=== PATIENT | female | born 1965 | race Caucasian/White ===

== ENCOUNTER 2023-03-24 07:31 | Inpatient (IN) | payer MEDICARE, MEDICAID ==
[~2023-03-24] VITALS: Ht 162.6 cm; Wt 61.4 kg
[2023-03-24] VITALS (10 sets, daily range): BP systolic 113–138; BP diastolic 68–83; PULSE 80–117; RESP 14–20; TEMP 97.7–98.1; O2SAT 89–98
--- NOTE | 2023-03-24 07:58 | NUR ---
pt presents w/SOB and possible broken rib on L side. MD at bedside.
[2023-03-24] MEDS ORDERED: morphine 4 MG/ML inj SYRINge IV ONE (08:10)
[2023-03-24] MEDS ORDERED: ipratropium/albuterol 3ml nebule IH PRN (08:20)
[2023-03-24] MEDS ORDERED: albuterol 2.5 MG/3 ML nebule CONTNEB ONE (08:20)
[2023-03-24] MEDS ORDERED: ipratropium 0.5 MG/2.5ML nebule IH ONE (08:20)
[2023-03-24] MEDS ORDERED: methylPREDNISolone sod succ 125mg/2ml vial IV ONE (08:25)
[2023-03-24 08:30] LABS: BASOPHILS # (AUTO) 0.2 X10'3 (0-0.2); BASOPHILS % (AUTO) 0.8 % (0-1); EOSINOPHILS # (AUTO) 0.2 X10'3 (0-0.9); EOSINOPHILS % (AUTO) 1.2 % (0-6); HEMATOCRIT 46.1 % (35.0-45.0); HEMOGLOBIN 15.5 g/dl (12.0-16.0); LYMPHOCYTES # (AUTO) 3.4 X10'3 (1.1-4.8); MEAN CORPUSCULAR HEMOGLOBIN 32.8 PG (27.0-31.0); MEAN CORPUSCULAR HGB CONC 33.5 g/dL (33.0-36.5); MEAN CORPUSCULAR VOLUME 97.9 FL (78-98); MEAN PLATELET VOLUME 10.3 FL (7.4-10.4); MONOCYTES # (AUTO) 1.6 X10'3 (0-0.9); MONOCYTES % (AUTO) 8.4 % (2-12); NEUTROPHILS # (AUTO) 13.5 X10'3 (1.8-7.7); NEUTROPHILS % (AUTO) 71.6 % (42-75); PLATELET COUNT 341 X10'3 (140-440); RED BLOOD COUNT 4.71 X10'6 (4.20-5.60); RED CELL DISTRIBUTION WIDTH 13.8 % (11.5-14.5); WHITE BLOOD COUNT 18.9 X10'3 (4.5-11.0)
[2023-03-24 08:44] LABS: ALANINE AMINOTRANSFERASE 13 U/L (12-78); ALBUMIN 3.8 G/DL (3.4-5.0); ALBUMIN/GLOBULIN RATIO 0.9 (1.1-1.5); ALKALINE PHOSPHATASE 87 IU/L (46-116); ANION GAP 11 (8-16); ASPARTATE AMINO TRANSFERASE 15 U/L (10-37); BILIRUBIN,TOTAL 0.5 MG/DL (0.1-1.0); BLOOD UREA NITROGEN 8 MG/DL (7-18); BUN/CREATININE RATIO 12.7 (10.0-20.0); CALCIUM 9.4 MG/DL (8.5-10.1); CHLORIDE 104 MMOL/L (99-107); CREATININE 0.63 MG/DL (0.40-0.90); GLUCOSE 143 MG/DL (70-104); POTASSIUM 3.7 MMOL/L (3.5-5.1); SODIUM 138 MMOL/L (135-145); TOTAL CARBON DIOXIDE 22.9 MMOL/L (24-32); eCRCL 84 ML/MIN; eGFR > 90 ML/MIN
[2023-03-24 08:51] LABS: PRO BRAIN NATRIURETIC PEPTIDE 38 PG/ML (0-125)
--- NOTE | 2023-03-24 10:09 | NUR ---
PT OFF FLOOR TO CT
--- NOTE | 2023-03-24 12:22 | NUR ---
Olga padilla in EDM - 03/24/23 at 1225 by AMORKSEllie Pt doing trial off bi-pap per MD order. Currently at 90%
[2023-03-24] MEDS ORDERED: potassium Cl 20 mEq SR tablet PO PRN (13:15)
[2023-03-24] MEDS ORDERED: potassium Cl 40MEQ/1/2NS 520ml 520 ML IV PRN (13:15)
[2023-03-24] MEDS ORDERED: magnesium Cl slow-release 64mg tablet PO PRN (13:15)
[2023-03-24] MEDS ORDERED: magnesium 4gm in 100ml NS 100 ML IV PRN (13:15)
[2023-03-24] MEDS ORDERED: ondansetron/PF 4mg/2ml inj IV PRN (13:15)
[2023-03-24] MEDS ORDERED: acetaminophen 325mg tablet PO PRN ×2 (13:15)
[2023-03-24] MEDS ORDERED: magnesium 2GM in 50ml NS 50 ML IV PRN (13:15)
[2023-03-24] MEDS ORDERED: morphine 2 MG/ML inj. syringe IV PRN ×2 (13:15)
--- NOTE | 2023-03-24 13:26 | NUR ---
Pt ambulated to bathroom, 1 assist, tolerated fair.
--- NOTE | 2023-03-24 14:42 | NUR ---
Patient in room ED 2. I have received report from RENATE RESENDIZ, and had the opportunity to ask questions and assume patient care.
[2023-03-24] MEDS: HYDROcodone/acetaminophen 5mg/325mg tablet PO PRN (16:46)
[2023-03-24] MEDS ORDERED: FLU VACC QS2023-24(6MOS UP)/PF 60 MCG/0.5 ML SYRINGE IM ONE (16:50)
[2023-03-24] MEDS ORDERED: pneumococcal 23-VAL P-sac vacc 25 mcg/0.5ml vial IMVAC ONE (16:50)
--- NOTE | 2023-03-24 18:10 | NUR ---
Problems reprioritized. Patient report given, questions answered & plan of care reviewed with RENATE CHOWDARY.
[2023-03-24] MEDS: ipratropium/albuterol 3ml nebule NEB SCH ×2 (19:33→23:38)
[2023-03-24] MEDS: methylPREDNISolone sod succ/PF 40mg inj. IV SCH (20:36)
[2023-03-24] MEDS: heparin, porcine 5000 units/ml vial SQ SCH (20:39)
[2023-03-24] MEDS ORDERED: IBUP-1984 PO (21:17)
[2023-03-24] MEDS: ibuprofen tablet 400 MG TABLET PO SCH (22:40)
[2023-03-25] VITALS (20 sets, daily range): BP systolic 106–153; BP diastolic 56–78; PULSE 85–114; RESP 16–22; TEMP 97.7–98.6; O2SAT 90–96
[2023-03-25] MEDS: temazepam 15mg capsule PO PRN ×2 (01:20→22:34)
[2023-03-25] MEDS: HYDROcodone/acetaminophen 10/325mg tab PO PRN ×3 (01:21→14:08)
[2023-03-25] MEDS ORDERED: ALBU18HF2 IH (01:53)
[2023-03-25] MEDS ORDERED: VARE1TAB24 PO (01:53)
[2023-03-25] MEDS ORDERED: FLUT1AER INH (01:53)
[2023-03-25] MEDS: ipratropium/albuterol 3ml nebule NEB SCH ×6 (02:39→23:40)
--- NOTE | 2023-03-25 06:25 | NUR ---
Problems reprioritized. Patient report given, questions answered & plan of care reviewed with Liza
[2023-03-25 06:38] LABS: BASOPHILS % (AUTO) 0.2 % (0-1); EOSINOPHILS % (AUTO) 0 % (0-6); HEMATOCRIT 41.1 % (35.0-45.0); HEMOGLOBIN 13.9 g/dl (12.0-16.0); LYMPHOCYTES # (AUTO) 1.2 X10'3 (1.1-4.8); LYMPHOCYTES % (AUTO) 5.6 % (21-51); MEAN CORPUSCULAR HEMOGLOBIN 32.9 PG (27.0-31.0); MEAN CORPUSCULAR HGB CONC 33.8 g/dL (33.0-36.5); MEAN CORPUSCULAR VOLUME 97.4 FL (78-98); MEAN PLATELET VOLUME 10.8 FL (7.4-10.4); MONOCYTES # (AUTO) 1.1 X10'3 (0-0.9); NEUTROPHILS # (AUTO) 19.2 X10'3 (1.8-7.7); NEUTROPHILS % (AUTO) 89.2 % (42-75); PLATELET COUNT 308 X10'3 (140-440); RED BLOOD COUNT 4.22 X10'6 (4.20-5.60); WHITE BLOOD COUNT 21.5 X10'3 (4.5-11.0)
--- NOTE | 2023-03-25 06:55 | NUR ---
Patient in room PCU 3012. I have received report from RENATE CHOWDARY, and had the opportunity to ask questions and assume patient care.
[2023-03-25 06:56] LABS: ALANINE AMINOTRANSFERASE 13 U/L (12-78); ALBUMIN 3.4 G/DL (3.4-5.0); ALBUMIN/GLOBULIN RATIO 0.9 (1.1-1.5); ALKALINE PHOSPHATASE 73 IU/L (46-116); ANION GAP 12 (8-16); ASPARTATE AMINO TRANSFERASE 10 U/L (10-37); BILIRUBIN,TOTAL 0.3 MG/DL (0.1-1.0); BLOOD UREA NITROGEN 13 MG/DL (7-18); BUN/CREATININE RATIO 17.8 (10.0-20.0); CALCIUM 9.6 MG/DL (8.5-10.1); CHLORIDE 102 MMOL/L (99-107); CREATININE 0.73 MG/DL (0.40-0.90); GLUCOSE 136 MG/DL (70-104); POTASSIUM 3.2 MMOL/L (3.5-5.1); SODIUM 137 MMOL/L (135-145); TOTAL CARBON DIOXIDE 23.3 MMOL/L (24-32); TOTAL PROTEIN 7.2 G/DL (6.4-8.2); eCRCL 73 ML/MIN; eGFR 82 ML/MIN
[2023-03-25] MEDS: potassium Cl 20 mEq SR tablet PO PRN ×3 (07:28→16:55)
[2023-03-25] MEDS: ibuprofen tablet 400 MG TABLET PO SCH ×3 (07:29→20:23)
[2023-03-25] MEDS: methylPREDNISolone sod succ/PF 40mg inj. IV SCH ×2 (07:31→20:25)
[2023-03-25] MEDS: heparin, porcine 5000 units/ml vial SQ SCH ×2 (07:35→20:26)
[2023-03-25] MEDS: CefTRIAXone 2gm/D5W 50ml BAG 50 ML IV SCH (11:32)
--- NOTE | 2023-03-25 17:05 | NUR ---
PT AMBULATED 300 FEET WITH THIS NURSE, TOLERATED WELL BY PT.
--- NOTE | 2023-03-25 18:24 | NUR ---
Problems reprioritized. Patient report given, questions answered & plan of care reviewed with RENATE CHOWDARY.
[2023-03-25 20:00] LABS: BILIRUBIN,URINE NEGATIVE (Neg); CLARITY,URINE CLEAR (Clear); COLOR,URINE YELLOW (Yellow); GLUCOSE, URINE NEGATIVE (Neg); KETONES,URINE NEGATIVE (Neg); LEUKOCYTE ESTERASE ,URINE NEGATIVE (Neg); NITRITES, URINE NEGATIVE (Neg); OCCULT BLOOD,URINE MODERATE (Neg); PROTEIN,URINE NEGATIVE (Neg); UROBILINOGEN,URINE 0.2 E.U/dL (0.2-1.0)
[2023-03-25 20:30] LABS: UA COLLECTION TYPE STRAIGHT CATH
[2023-03-25 20:41] LABS: BACTERIA,URINE FEW /HPF (Neg); SQUAMOUS EPITHELIAL CELL,UR FEW /LPF (FEW); WBC,URINE 0-4 /HPF (0-4)
[2023-03-25] MEDS: HYDROcodone/acetaminophen 5mg/325mg tablet PO PRN (22:35)
[2023-03-26] VITALS (16 sets, daily range): BP systolic 98–137; BP diastolic 53–96; PULSE 71–104; RESP 16–21; TEMP 97.5–98.8; O2SAT 89–97
[2023-03-26] MEDS: ipratropium/albuterol 3ml nebule NEB SCH ×6 (03:54→23:56)
--- NOTE | 2023-03-26 06:14 | NUR ---
Problems reprioritized. Patient report given, questions answered & plan of care reviewed with Pretty
--- NOTE | 2023-03-26 06:23 | NUR ---
Patient in room PCU 3012. I have received report from Sarah and had the opportunity to ask questions and assume patient care.
[2023-03-26] MEDS: heparin, porcine 5000 units/ml vial SQ SCH ×2 (08:27→21:35)
[2023-03-26] MEDS: ibuprofen tablet 400 MG TABLET PO SCH ×3 (08:28→21:34)
[2023-03-26] MEDS: methylPREDNISolone sod succ/PF 40mg inj. IV SCH ×2 (08:38→19:33)
[2023-03-26] MEDS: CefTRIAXone 2gm/D5W 50ml BAG 50 ML IV SCH (08:42)
[2023-03-26] MEDS: HYDROcodone/acetaminophen 10/325mg tab PO PRN ×2 (08:58→15:46)
--- NOTE | 2023-03-26 09:57 | NUR ---
O2 Sat at rest on room air:_86_% If below 89%: Recovery O2 Sat at rest on _4LPM:_86%:__91_% via____NASAL CANNULA__(mask/nasal cannula, etc..) No further documentation is necessary. If O2 Sat did not drop below 89% on room air,ambulate patient on room air. O2 Sat while ambulating on room air:___% Recovery O2 Sat while ambulating on ___LPM:___% No further documentation is necessary. If patient does not drop below 89% while ambulating, he/she does not qualify for home O2.
[2023-03-26 10:33] LABS: BASOPHILS % (AUTO) 0.2 % (0-1); D-DIMER 0.33 MG/L FEU (0-0.50); EOSINOPHILS % (AUTO) 0 % (0-6); HEMOGLOBIN 13.2 g/dl (12.0-16.0); LYMPHOCYTES % (AUTO) 7.4 % (21-51); MEAN CORPUSCULAR HEMOGLOBIN 32.5 PG (27.0-31.0); MEAN CORPUSCULAR VOLUME 98.5 FL (78-98); MONOCYTES # (AUTO) 1.1 X10'3 (0-0.9); NEUTROPHILS # (AUTO) 24.5 X10'3 (1.8-7.7); NEUTROPHILS % (AUTO) 88.4 % (42-75); PLATELET COUNT 306 X10'3 (140-440); RED BLOOD COUNT 4.06 X10'6 (4.20-5.60); RED CELL DISTRIBUTION WIDTH 13.9 % (11.5-14.5)
[2023-03-26 10:42] LABS: WHITE BLOOD COUNT 27.7 X10'3 (4.5-11.0)
--- NOTE | 2023-03-26 10:52 | NUR ---
T/C to Balta notifying him that patient has a critical lab value of WBC 27.7H. He said he will check it again.
[2023-03-26 10:57] LABS: ALANINE AMINOTRANSFERASE 13 U/L (12-78); ALBUMIN 3.3 G/DL (3.4-5.0); ALKALINE PHOSPHATASE 67 IU/L (46-116); ANION GAP 10 (8-16); ASPARTATE AMINO TRANSFERASE 11 U/L (10-37); BILIRUBIN,TOTAL 0.3 MG/DL (0.1-1.0); BLOOD UREA NITROGEN 22 MG/DL (7-18); BUN/CREATININE RATIO 31.9 (10.0-20.0); CALCIUM 9.3 MG/DL (8.5-10.1); CHLORIDE 103 MMOL/L (99-107); CREATININE 0.69 MG/DL (0.40-0.90); GLUCOSE 148 MG/DL (70-104); POTASSIUM 3.9 MMOL/L (3.5-5.1); SODIUM 137 MMOL/L (135-145); TOTAL CARBON DIOXIDE 23.9 MMOL/L (24-32); TOTAL PROTEIN 6.7 G/DL (6.4-8.2); eCRCL 77 ML/MIN; eGFR 87 ML/MIN
[2023-03-26 11:19] LABS: BURR CELLS 1+; PLATELET ESTIMATE NORMAL; TOTAL CELLS COUNTED 100
[2023-03-26 11:20] LABS: LARGE PLATELETS FEW
[2023-03-26 11:31] LABS: HEMOGLOBIN A1C 5.5 % (4.5-6.2)
[2023-03-26] MEDS: levoFLOXACIN-Levaquin 500mg/D5 100 ML IV SCH (11:59)
--- NOTE | 2023-03-26 18:23 | NUR ---
Problems reprioritized. Patient report given, questions answered & plan of care reviewed with Mel. Addendum: 03/26/23 at 1834 by Pretty Canseco LVN, LVN Problems reprioritized. Patient report given, questions answered & plan of care reviewed with
[2023-03-26] MEDS: HYDROcodone/acetaminophen 5mg/325mg tablet PO PRN (21:34)
[2023-03-26] MEDS: temazepam 15mg capsule PO PRN (21:34)
[2023-03-27] VITALS (21 sets, daily range): BP systolic 125–136; BP diastolic 64–84; PULSE 77–120; RESP 16–30; TEMP 96.7–98.2; O2SAT 88–100
--- NOTE | 2023-03-27 00:29 | NUR ---
SOLE ASSESSOR documentation: I have reviewed and agree with assessment documented by COREY PICHARDO, UNLESS OTHERWISE CHARTED.
[2023-03-27] MEDS: ipratropium/albuterol 3ml nebule NEB SCH ×6 (02:58→23:53)
[2023-03-27] MEDS: HYDROcodone/acetaminophen 10/325mg tab PO PRN ×3 (05:59→20:06)
--- NOTE | 2023-03-27 06:30 | NUR ---
Patient in room PCU 3012. I have received report from KYLEE and had the opportunity to ask questions and assume patient care.
[2023-03-27] MEDS: methylPREDNISolone sod succ/PF 40mg inj. IV SCH ×2 (07:26→21:31)
[2023-03-27 07:27] LABS: BASOPHILS # (AUTO) 0.1 X10'3 (0-0.2); BASOPHILS % (AUTO) 0.2 % (0-1); EOSINOPHILS % (AUTO) 0 % (0-6); HEMATOCRIT 40.9 % (35.0-45.0); HEMOGLOBIN 13.5 g/dl (12.0-16.0); LYMPHOCYTES # (AUTO) 2.2 X10'3 (1.1-4.8); LYMPHOCYTES % (AUTO) 9.2 % (21-51); MEAN CORPUSCULAR HEMOGLOBIN 32.5 PG (27.0-31.0); MEAN CORPUSCULAR HGB CONC 33.1 g/dL (33.0-36.5); MEAN CORPUSCULAR VOLUME 98.2 FL (78-98); MEAN PLATELET VOLUME 10.5 FL (7.4-10.4); MONOCYTES # (AUTO) 1.1 X10'3 (0-0.9); MONOCYTES % (AUTO) 4.6 % (2-12); NEUTROPHILS # (AUTO) 20.6 X10'3 (1.8-7.7); PLATELET COUNT 316 X10'3 (140-440); RED BLOOD COUNT 4.17 X10'6 (4.20-5.60); RED CELL DISTRIBUTION WIDTH 13.7 % (11.5-14.5); WHITE BLOOD COUNT 23.9 X10'3 (4.5-11.0)
[2023-03-27] MEDS: levoFLOXACIN-Levaquin 500mg/D5 100 ML IV SCH (07:27)
[2023-03-27 07:34] LABS: ALANINE AMINOTRANSFERASE 14 U/L (12-78); ALBUMIN 3.4 G/DL (3.4-5.0); ALKALINE PHOSPHATASE 66 IU/L (46-116); ANION GAP 11 (8-16); ASPARTATE AMINO TRANSFERASE 10 U/L (10-37); BILIRUBIN,TOTAL 0.3 MG/DL (0.1-1.0); BLOOD UREA NITROGEN 22 MG/DL (7-18); BUN/CREATININE RATIO 32.4 (10.0-20.0); CALCIUM 9.6 MG/DL (8.5-10.1); CHLORIDE 103 MMOL/L (99-107); CREATININE 0.68 MG/DL (0.40-0.90); GLUCOSE 113 MG/DL (70-104); POTASSIUM 4.1 MMOL/L (3.5-5.1); SODIUM 137 MMOL/L (135-145); TOTAL CARBON DIOXIDE 23.2 MMOL/L (24-32); TOTAL PROTEIN 6.8 G/DL (6.4-8.2); eCRCL 78 ML/MIN; eGFR 89 ML/MIN
[2023-03-27] MEDS: ibuprofen tablet 400 MG TABLET PO SCH ×3 (08:50→21:00)
[2023-03-27] MEDS: heparin, porcine 5000 units/ml vial SQ SCH ×2 (08:52→20:07)
--- NOTE | 2023-03-27 09:30 | NUR ---
PATIENT IV INFILTRATED. STARTED NEW IV 20G RIGHT FOREARM.
[2023-03-27 09:49] LABS: HEP B CORE AB, IGM Negative (Negative); HEPATITIS C VIRUS ANTIBODY Non Reactive (Non Reactive)
--- NOTE | 2023-03-27 10:06 | NUR ---
PATIENT HAS NOT HAD A BM SINCE MAR 23. CALLED DR YEE AND HE ORDERED MIRALAX PO ONE TIME DAILY PRN FOR FIVE DAYS. ORDER ENTERED.
--- NOTE | 2023-03-27 10:08 | NUR ---
Problems reprioritized. Patient report given, questions answered & plan of care reviewed with TIFFANI.
--- NOTE | 2023-03-27 10:08 | NUR ---
Patient in room PCU 3012. I have received report from REY NICOLE and had the opportunity to ask questions and assume patient care. pATIENT IS RESTING IN BED TALKING ON PHONE IN NO ACUTE DISTRESS.
--- NOTE | 2023-03-27 11:00 | NUR ---
DR YEE WAS IN PATIENTS ROOM AND DISCUSSED WITH HER THE ELEVATED WBC COUNT AND THE IMPORTANCE OF HER STAYING IN THE HOSPITAL UNTIL HER IV ANTIBIOTICS WERE COMPLETE. PATIENT ASKED THE DOCTOR IF SHE COULD RETURN HOME TODAY AND HE SAID MAYBE TOMORROW IF HER WBC COUNT CONTINUES TO TREND DOWN. PATIENT WAS DISAPPOINTED BUT AGREED THAT IT MAY BE FOR THE BEST. DR YEE STATED HE DOES NOT WANT HER TO END UP BACK IN THE HOSPITAL.
[2023-03-27] MEDS: polyethylene glycol 3350 17gm powd pack PO PRN (11:53)
--- NOTE | 2023-03-27 13:46 | NUR ---
WALKED 300FT NO ISSUES PT TOLERATED ACTIVITY WELL
[2023-03-27] MEDS ORDERED: HYDR-3972 PO (15:08)
--- NOTE | 2023-03-27 15:50 | NUR ---
Patient in room PCU 3012. I have received report from RENATE Hare and had the opportunity to ask questions and assume patient care.
--- NOTE | 2023-03-27 15:53 | NUR ---
Problems reprioritized. Patient report given, questions answered & plan of care reviewed with IWONA DEWITT. PATIENT RESTIN IN BED IN NO ACUTE DISTRESS.
--- NOTE | 2023-03-27 16:15 | NUR ---
I agree with previous RN's assessment.
--- NOTE | 2023-03-27 18:30 | NUR ---
Problems reprioritized. Patient report given, questions answered & plan of care reviewed with RENATE Walker.
--- NOTE | 2023-03-27 22:01 | NUR ---
Paged PAGER ID: [phone] MESSAGE: Vaishnavi Cardenas I have an Abnormal EKG on patient Feli Lyman in room 3012B that needs to be read she is experiencing chest pain at the moment.
[2023-03-27] MEDS ORDERED: LEVO-65 PO (22:44)
[2023-03-28] VITALS (8 sets, daily range): BP systolic 128–131; BP diastolic 75–89; PULSE 77–109; RESP 17–20; TEMP 96.7; O2SAT 86–97
[2023-03-28] MEDS: temazepam 15mg capsule PO PRN (01:19)
--- NOTE | 2023-03-28 04:05 | NUR ---
alcohol rubber documentation: I have reviewed and agree with interventions, assessments performed and documented by MIKE NICOLE.
[2023-03-28] MEDS: ipratropium/albuterol 3ml nebule NEB SCH ×2 (04:11→07:52)
--- NOTE | 2023-03-28 06:47 | NUR ---
Patient in room [place] [id number]. I have received report from RENATE Walker and had the opportunity to ask questions and assume patient care. Addendum: 03/28/23 at 0648 by Miranda SONIMARY Patient in room [place] [id number]. I have received report from COREY Walker and had the opportunity to ask questions and assume patient care.
--- NOTE | 2023-03-28 07:31 | NUR ---
Dr. Leal and Dr. Gifford in to see patient and states patient was to be dc'd yesterday morning but to be dc'd today. Dr. Leal states patient does not need her morning meds to and be dc'd. Patient states she is aware but lab was in room and drawing her blood and patient states wanting her blood to be drawn prior to dc.
--- NOTE | 2023-03-28 07:35 | NUR ---
PAGER ID: [phone] MESSAGE: [id number]- Feli Lyman- went to let patient know preparing dc packet but lab was in room drawing her blood and pt wants blood drawn and WBC count before dc.- Paulette [phone]
--- NOTE | 2023-03-28 08:04 | NUR ---
CBC CANCELLED DUE TO BLOOD CLOT, LAB WILL COME REDRAW, REPORT TO IWONA DEWITT
--- NOTE | 2023-03-28 08:09 | NUR ---
PAGER ID: [phone] MESSAGE: [id number]- Alex Lyman- pt has not had BM since 03/23. states "I just want to have my food baby at home." Do you want her to have BM before she leaves or ok to dc still?- Paulette [phone]
--- NOTE | 2023-03-28 08:10 | NUR ---
Notified Dr. Leal patient has not had BM since 03/23 and also lab was drawn but clotted and will need to be redrawn. Dr. Leal ok for patient to be dc'd still and no need for further labs.
[2023-03-28 08:17] LABS: ALANINE AMINOTRANSFERASE 28 U/L (12-78); ALBUMIN 3.4 G/DL (3.4-5.0); ALBUMIN/GLOBULIN RATIO 0.8 (1.1-1.5); ALKALINE PHOSPHATASE 79 IU/L (46-116); ANION GAP 11 (8-16); ASPARTATE AMINO TRANSFERASE 14 U/L (10-37); BILIRUBIN,TOTAL 0.6 MG/DL (0.1-1.0); BLOOD UREA NITROGEN 19 MG/DL (7-18); BUN/CREATININE RATIO 31.1 (10.0-20.0); CALCIUM 9.9 MG/DL (8.5-10.1); CHLORIDE 102 MMOL/L (99-107); CREATININE 0.61 MG/DL (0.40-0.90); GLUCOSE 115 MG/DL (70-104); POTASSIUM 4.8 MMOL/L (3.5-5.1); SODIUM 133 MMOL/L (135-145); TOTAL CARBON DIOXIDE 19.9 MMOL/L (24-32); TOTAL PROTEIN 7.5 G/DL (6.4-8.2); eCRCL 87 ML/MIN; eGFR > 90 ML/MIN
[2023-03-28] MEDS: polyethylene glycol 3350 17gm powd pack PO PRN (08:28)
--- NOTE | 2023-03-28 08:54 | NUR ---
Patient alert and oriented in no apparent acute distress. Discussed with patient discharge instructions and new prescriptions. Patient verbalizes understanding of teaching and states no questions. Patient dc'd with all personal belongings including her portable O2 escorted out in wheelchair accompanied by axilary staff.
--- NOTE | 2023-03-28 12:05 | NUR ---
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 Let patient know that prescription was escritpted and will call pharmacy. Called to [facility] pharmacy for telephone order. Patient notified pharmacist states working on it now,.
== END 2023-03-28 12:44 | disposition home or self-care (01) | DRG 871 ==
LOC: ER 07:32 → ED HOLD 13:20 → PCU 3S 14:56
PROVIDERS: ADMIT Internal Medicine; ATTEND Internal Medicine
PROC: 3E02340 Introduction of Influenza Vaccine into Muscle, Percutaneous Approach (ICD-10-PCS; principal; 2023-03-24)
PROC: 3E0234Z Introduction of Serum, Toxoid and Vaccine into Muscle, Percutaneous Approach (ICD-10-PCS; 2023-03-24)
DX: A41.9 Sepsis, unspecified organism (principal); J96.21 Acute and chronic respiratory failure with hypoxia; J44.1 Chronic obstructive pulmonary disease with (acute) exacerbation; E87.6 Hypokalemia; F12.11 Cannabis abuse, in remission; F17.210 Nicotine dependence, cigarettes, uncomplicated; Z20.822 Contact with and (suspected) exposure to COVID-19; Z23 Encounter for immunization
CPT/HCPCS: 36415; 71045; 71250; 80053; 81001; 82800; 83036; 83880; 84145; 84484; 85007; 85025; 85379; 85651; 86705; 86803; 87040; 87081; 87522; 87811; 90686; 90732; 93005; 94640; 94660; 94760; 97116; 97161; 97530; 99285; A4615; A7015; G0378; J0696; J1644; J1956; J2270; J2920; J2930; J7040